=== PATIENT | male | born 1970 | race Caucasian/White ===

== ENCOUNTER 2024-03-22 14:48 | Emergency (ER) | payer OTHER ==
[2024-03-22 15:18] VITALS: BP 120/88; PULSE 91; RESP 18; TEMP 98.2; BMI 22.1
[2024-03-22] MEDS ORDERED: ACETAMINOPHEN 500 MG TABLET (FP) ONE (15:35)
[2024-03-22] MEDS ORDERED: KETOROLAC TROMETHAMINE 30 MG/1 ML VIAL ONE (15:36)
[2024-03-22] MEDS ORDERED: CYCLOBENZAPRINE HCL 5 MG TABLET ONE (15:36)
[2024-03-22] MEDS: ACETAMINOPHEN 325 MG TABLET (FP) PO ONE (15:58)
[2024-03-22] MEDS: CYCLOBENZAPRINE HCL 10 MG TABLET (FP) PO ONE (15:58)
[2024-03-22] MEDS: KETOROLAC TROMETHAMINE 60 MG/2 ML VIAL IM ONE (16:16)
[2024-03-22] MEDS ORDERED: IBUPROFEN 400 MG TABLET (FP) PO ONE (16:16)
[2024-03-22] MEDS: IBUPROFEN 400 MG TABLET (FP) PO ONE (16:18)
== END 2024-03-22 17:50 | disposition home or self-care (01) ==
LOC: FER 14:48
DX: M25.511 Pain in right shoulder (principal); M54.50 Low back pain, unspecified; M54.6 Pain in thoracic spine; V48.5XXA Car driver injured in noncollision transport accident in traffic accident, initial encounter; Y92.410 Unspecified street and highway as the place of occurrence of the external cause
CPT/HCPCS: 72050-TC-FY; 72070-TC-FY; 72100-TC-FY; 73140-TC-LT-FY; 99284-25